=== PATIENT | male | born 1985 | race African-American/Black ===

== ENCOUNTER 2018-03-11 12:35 | Emergency (ER) | payer MEDICAID ==
[~2018-03-11] VITALS: Ht 165.1 cm; Wt 68.0 kg
[2018-03-11 13:21] LABS: Urine Bacteria NONE SEEN /hpf (None Seen); Urine Blood Negative /uL (Negative); Urine Mucus FEW (None Seen); Urine Specific Gravity 1.021 (1.001-1.035); Urine WBC 4 /hpf (0 - 3)
[2018-03-11 13:22] LABS: Alcohol, Urine < 3.0 mg/dL (0-5); Amphetamine Screen, Urine NEGATIVE (NEGATIVE); Barbiturate Scree,Urine NEGATIVE (NEGATIVE); Benzodiazephine Screen, Urine NEGATIVE (NEGATIVE); Cannabinoid Screen, Urine NEGATIVE (NEGATIVE); Cocaine Screen, Urine NEGATIVE (NEGATIVE); Opiate Scree,Urine NEGATIVE (NEGATIVE); Phencyclidine Screen, Urine NEGATIVE (NEGATIVE)
[2018-03-11 14:25] VITALS: BP 126/70
[2018-03-11] MEDS ORDERED: cefTRIAXone SOD 500 MG VL IM ONE (15:15)
[2018-03-11] MEDS ORDERED: AZITHROMYCIN 250 MG TAB PO ONE (15:15)
== END 2018-03-11 15:41 | disposition home or self-care (01) ==
LOC: ER 12:35
DX: Z20.2 Contact with and (suspected) exposure to infections with a predominantly sexual mode of transmission (principal)
CPT/HCPCS: 80307; 81001; 96372; 99283; J0696